=== PATIENT | male | born 1975 | race Caucasian/White ===

== ENCOUNTER 2017-04-23 09:12 | Day surgery (SDC) | payer MEDICAID ==
[~2017-04-23] VITALS: Ht 172.7 cm; Wt 88.5 kg
[2017-04-23] MEDS ORDERED: LACTATED RINGERS 1,000 ML IV SCH (10:30)
[2017-04-23] MEDS ORDERED: PROPOFOL 200MG/20ML VIAL IV ONE ×2 (12:14→20:16)
[2017-04-23] MEDS ORDERED: LIDOCAINE HCL 1% 20ML VIAL (Pyxis) INJ ONE (12:14)
[2017-04-23] MEDS ORDERED: METOCLOPRAMIDE HCL 10MG/2ML VIAL IV ONE ×2 (15:45→18:30)
[2017-04-23] MEDS ORDERED: ONDANSETRON HCL 4MG/2ML VIAL IV PRN (15:45)
[2017-04-23] MEDS ORDERED: MAGNESIUM CITRATE 300ML SOLUTION PO ONE (15:45)
[2017-04-23] MEDS ORDERED: DEXT 5%/0.9% NACL 1,000 ML IV SCH (18:30)
[2017-04-23] MEDS ORDERED: SODIUM CHLORIDE 0.9% 1,000 ML IV SCH (20:15)
[2017-04-23] MEDS ORDERED: ONDANSETRON HCL 4MG/2ML VIAL IV NR (20:45)
[2017-04-23] MEDS ORDERED: MORPHINE SULFATE 4 MG/ML CPJ (NOT FOR IM USE) IV PRN (20:45)
[2017-04-23 20:59] VITALS: BP 103/54
[2017-04-26] MEDS ORDERED: PROPOFOL 200MG/20ML VIAL IV ONE (10:30)
== END 2017-04-23 22:00 | disposition home or self-care (01) ==
LOC: OR 09:12
PROVIDERS: ATTEND Internal Medicine Gastroenterology
DX: D12.2 Benign neoplasm of ascending colon (principal); E66.3 Overweight; Z88.0 Allergy status to penicillin
CPT/HCPCS: 45380; 88305; 93005; J2270; J2765; J3490; J7042; J7120; J2704